=== PATIENT | female | born 1960 | race Caucasian/White ===

== ENCOUNTER → 2020-08-21 | Outpatient (CLI) | payer BC ==
--- NOTE | 2020-08-21 12:00 | XR ---
EXAMINATION TYPE: XR IVP DATE OF EXAM: 08/21/2020 COMPARISON: Outside CT abdomen and pelvis report July 27, 2020 HISTORY: Left-sided hydronephrosis, abnormal recent CT TECHNIQUE: Following intravenous administration of 100 cc Isovue 300, multiple spot images are obtain ed. Total of 7 images obtained The preliminary film of the abdomen reveals no significant abnormality. No definite nephrolithiasis i s seen. Following intravenous administration of contrast material, sequential films of the abdomen were obtai gerda. There is prompt and symmetrical excretion of the contrast by both kidneys which demonstrate nor mal size and configuration. The collecting systems and visualized portions of the ureters reveal rou nd nearly 3.0 cm area between left mid to lower pole calyx suggesting cysts or other mass lesion but no lesion noted on recent CT report. Consider review of images to ensure no mass at this level. There is no mass or obstruction visualized. There is gradual accumulation of contrast material in the uri nary bladder showing no gross abnormality. The post-voiding film shows minimal residual contrast in the collecting systems and urinary bladder. IMPRESSION: No hydronephrosis noted bilaterally, symmetric excretion is seen.
== END ==
LOC: RADFLMAIN 08:44
PROVIDERS: ATTEND Urology
DX: N13.30 Unspecified hydronephrosis (principal)
CPT/HCPCS: 82565; 84520; 74400; Q9967